=== PATIENT | female | born 1965 | race Caucasian/White ===

== ENCOUNTER → 2019-07-23 | Outpatient (CLI) | payer BC | LOC: YCFC.O 09:37 | PROVIDERS: ATTEND Family Medicine | DX: R53.83 Other fatigue (principal); D64.9 Anemia, unspecified; R35.1 Nocturia; Z13.220 Encounter for screening for lipoid disorders ==

== ENCOUNTER → 2019-10-13 | Outpatient (CLI) | payer BC ==
--- NOTE | 2019-10-14 20:55 | MAM ---
EXAM DESCRIPTION: 3D Screening BILATERAL : Digital Mammography. CLINICAL HISTORY: 54 years Female ANNUAL SCREENING . No complaints and no personal history of breast cancer. Mother with ovarian cancer. No family history of breast cancer. Menarche age 13. No Childbirth. Hysterectomy age 53. No HRT. Lifetime risk of developing breast cancer (Tyrer-Cuzick model)(%): 10.5. COMPARISON: No prior mammograms for comparison.. No prior reports available. TECHNIQUE: Bilateral CC and MLO projection full-field images, digital tomosynthesis mammographic technique. Bilateral digital 2-D full-field MLO images. CAD available for 2-D images. FINDINGS: The breast parenchymal density pattern is: Almost entirely fatty. No skin thickening or nipple retraction. Solitary microcalcifications. Lateral inferior intramammary lymph node. No new focal, stellate mass or density, focal asymmetry , and no suspicious microcalcifications bilaterally. IMPRESSION: Benign exam. BIRAD CATEGORY: 2 BENIGN FINDINGS. RECOMMENDATIONS: FOLLOW UP: Routine digital bilateral mammographic screening, one year interval from October 2019. Written communication explaining the IMPRESSION and follow-up, will be mailed to the patient and referring health care provider. According to the [employer], yearly mammograms are recommended starting at age 40 and continuing as long as a woman is in good health. Any breast change noted on a breast self-exam should be reported promptly to the patient's healthcare provider. Breast MRI is recommended for women with an approximately 20-25% or greater lifetime risk of breast cancer, including women with a strong family history of breast or ovarian cancer and women who have been treated for Hodgkin's disease. A negative mammographic report should not delay tissue diagnosis in patients with significant clinical history or physical findings. Extremely dense breast tissue limits the sensitivity of digital mammography. Electronically signed by: Vinod Ocasio MD 10/14/2019 8:53 PM [facility]
== END ==
LOC: MAMMO 11:00
PROVIDERS: ATTEND Family Medicine
DX: Z12.31 Encounter for screening mammogram for malignant neoplasm of breast (principal)

== ENCOUNTER → 2019-10-24 | Outpatient (CLI) | payer BC | LOC: LAB.O 09:37 | PROVIDERS: ATTEND Family Medicine | DX: E78.5 Hyperlipidemia, unspecified (principal) ==

== ENCOUNTER → 2020-04-06 | Outpatient (CLI) | payer BC | LOC: YCFC.O 08:59 | PROVIDERS: ATTEND Family Medicine | DX: E78.5 Hyperlipidemia, unspecified (principal) ==

== ENCOUNTER → 2020-04-06 | Outpatient (CLI) | payer BC | LOC: YCFC.O 11:27 | PROVIDERS: ATTEND Family Medicine | DX: Z20.828 Contact with and (suspected) exposure to other viral communicable diseases (principal) ==

== ENCOUNTER → 2020-09-28 | Outpatient (CLI) | payer BC ==
--- NOTE | 2020-09-28 15:33 | RAD ---
EXAM: Chest,2 Views INDICATION: 55 years Female, COVID-19 COMPARISON: None available FINDINGS: Two views of the chest were performed. Heart size is within normal limits. A few subtle small scattered groundglass pulmonary infiltrates are seen in the lung bases bilaterally. No pleural effusion. No pneumothorax. The osseous structures are intact. Unremarkable appearance of the visualized upper abdomen. IMPRESSION: A few scattered subtle small groundglass opacities are seen in the lung bases. Imaging features can be seen with COVID-19 pneumonia, though are nonspecific and can occur with a variety of infectious and noninfectious processes. Electronically signed by: Briseida Eubanks MD 09/28/2020 3:31 PM [facility]
== END ==
LOC: YCFC.O 14:39
PROVIDERS: ATTEND Family Medicine
DX: U07.1 COVID-19 (principal); R91.8 Other nonspecific abnormal finding of lung field